=== PATIENT | female | born 1980 | race Caucasian/White ===

== ENCOUNTER 2023-10-29 14:19 | Outpatient (AMB) | payer BC, SELFPAY ==
--- NOTE | 2023-10-29 14:22 | AM.OFFWIN_ITS ---
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 Admits to having new piercing 2 weeks ago. Denies systemic symptoms. PFSH Social History Patient Tobacco Use Status: Never used Tobacco Review of Systems Const All systems reviewed & are unremarkable except as noted in HPI and below Physical Exam Vital Signs: Last Vital Signs Temp 97.6 F 10/29/23 14:27 Pulse 78 10/29/23 14:27 BP 140/90 H 10/29/23 14:27 Pulse Ox 99 10/29/23 14:27 Oxygen Delivery Method Room Air 10/29/23 14:27 BMI result Body Mass Index 27.1 Const General: comfortable and no acute distress HEENT Head: Yes normocephalic and Yes atraumatic Ears: hearing grossly normal bilaterally, TM normal on the right, TM normal on the left, mastoids normal, no periauricular adenopathy and external ear abnormal auricular tenderness on the left and pain with movement of external ear General nose exam: Normal nares present Face and sinus: Yes sinuses nontender Mouth: moist mucous membranes Throat: Yes posterior oropharynx normal Resp Effort & Inspection: normal respiratory effort and able to speak in complete sentences Auscultation: clear to auscultation bilaterally Cardio Rate: regular rate Rhythm: regular rhythm Assessment & Plan Assessment & Plan (1) Otitis external: Code(s): H60.90 - Unspecified otitis externa, unspecified ear Qualifiers: Chronicity: acute Laterality: left Otitis externa type: unspecified type Qualified Code(s): H60.502 - Unspecified acute noninfective otitis externa, left ear Plan: - Take Abx as directed - Acetaminophen for pain - Keep eyes clean and dry Medications: New ciprofloxacin-dexamethasone 0.3-0.1 % 4 drps otic (ear) left BID 7 days 7.5 mL 0RF H60.502 - Unspecified acute noninfective otitis externa, left ear levofloxacin 500 mg PO DAILY 7 days 7 tabs 0RF H60.502 - Unspecified acute noninfective otitis externa, left ear Coding Level of Care Code Est Pt Level 3 (89817) Diagnoses Acute otitis externa of left ear, unspecified type H60.502 Chronicity: acute Laterality: left Otitis externa type: unspecified type Time Spent (min) 15
[2023-10-29 14:27] VITALS: BP 140/90; PULSE 78; TEMP 36.4; O2SAT 99; BMI 27.1
== END 2023-10-29 15:04 | disposition home or self-care (01) ==
PROVIDERS: PCP Nurse Practitioner Adult Health; Visit Provider Nurse Practitioner Family
DX: H60.502 Unspecified acute noninfective otitis externa, left ear (principal)
CPT/HCPCS: 99213

== ENCOUNTER 2024-02-22 08:10 | Outpatient (AMB) | payer OTHER, SELFPAY ==
[2024-02-22 08:13] VITALS: BP 118/72; PULSE 78; TEMP 36.8; O2SAT 98
--- NOTE | 2024-02-22 08:13 | MHC.OFFWIV ---
Intake Vital Signs 02/22/24 08:13 Height 5 ft 4 in BP 118/72 Blood Pressure Location Rt brachial Position Sitting Pulse 78 Pulse Source Pulse Oximeter Temp 98.3 F Temp Source Oral Pulse Oximetry (%) 98 Intake Visit Reasons: EP ?conjunctivitis Intake Note: pt is here for pink eye Patient Tobacco Use Status: Never used Tobacco Allergies No Known Allergies Allergy (Verified 02/22/24 08:14) Do you need a note to return to daycare/school/sports/work: Yes HPI HPI Comments History of Present Illness Details Patient is a 43-year-old female complaining of what she thinks is pink eye which started in her left eye yesterday morning and is now moving into her right eye. She states she wakes up and her eyes were crusted shut with a yellow crust. She denies any changes in her vision. She denies anybody has home having this illness. Nothing seems to make it worse and nothing seems to make it better PFSH Social History Patient Tobacco Use Status: Never used Tobacco Review of Systems Const All systems reviewed & are unremarkable except as noted in HPI and below Physical Exam Vital Signs: Last Vital Signs Temp 98.3 F 02/22/24 08:13 Pulse 78 02/22/24 08:13 BP 118/72 02/22/24 08:13 Pulse Ox 98 02/22/24 08:13 Const General: cooperative, healthy appearing, comfortable and no acute distress Orientation/consciousness: patient oriented x3 Limitations: no limitations HEENT Head: Yes normal to inspection Ears: external ears normal General nose exam: Normal external nose present, Normal nares present and No nasal discharge present Face and sinus: Yes normal facial exam and Yes sinuses nontender Mouth: Normal oral and palatal mucosa present and moist mucous membranes Throat: Yes posterior oropharynx normal Eyes Visual Paredes: normal visual paredes by confrontation Alignment and Position: alignment normal and position normal Periorbital: periorbital findings normal Eyelids: Yes other (crusted yellow remnants on left lower eyelid) Conjunctivae: conjunctival abnormal right conjunctival injection (slight) and discharge (slight yellow) and left conjunctival injection and discharge (yellow ) Pupils: Equal, round and reactive pupils present EOM: EOMs intact bilaterally Neck Neck: Yes normal visual inspection Resp Effort & Inspection: normal respiratory effort, able to speak in complete sentences, Actively coughing, no respiratory distress, not tachypneic, no tripod positioning and no use of accessory muscles Skin General skin exam: no rashes or lesions noted Neuro General: patient oriented x3 Cranial nerves: Yes Equal, round and reactive pupils present Extrem General: Yes normal to inspection and Yes no clubbing, cyanosis or edema Assessment & Plan Assessment & Plan (1) Conjunctivitis: Code(s): H10.9 - Unspecified conjunctivitis Plan: Erythromycin ointment sent to pharmacy, advised if she has any changes in her vision or symptoms get worse to go to the ER or follow up with her eye doctor. Plan See above Medications: New erythromycin use in affected eye(s), apply small 1cm ribbon to lower eyelid 0.5 inches ophthalmic (eye) QID 3.5 grams 0RF Coding Level of Care Code Est Pt Level 2 (33542) Diagnoses Conjunctivitis H10.9
== END 2024-02-22 09:08 | disposition home or self-care (01) ==
PROVIDERS: PCP Nurse Practitioner Adult Health; Visit Provider Physician Assistant
DX: H10.9 Unspecified conjunctivitis (principal)
CPT/HCPCS: 99213